=== PATIENT | female | born 1990 | race Caucasian/White ===

== ENCOUNTER 2019-04-15 17:58 | Inpatient (IN) | payer SELFPAY ==
[2019-04-15 18:38] LABS: Absolute Lymphocytes (CBC) 2.1 K/uL (0.7-4.9); Basophils % 0.5 % (0-1.3); Hematocrit 39.1 % (36.0-45.0); Lymphocytes % 28.4 % (15.3-44.8); MPV 8.3 fL (7.6-11.3); RBC Red Blood Cell Count 4.72 M/uL (3.86-4.86)
[2019-04-15] MEDS ORDERED: KETOROLAC 30 MG/ML INJ ONE (18:57)
[2019-04-15] MEDS ORDERED: ONDANSETRON 4 MG/2 ML VIAL ONE (18:58)
[2019-04-15] MEDS ORDERED: NA CHLORIDE 0.9% 1,000 ML ONE (18:58)
[2019-04-15 19:02] LABS: ALT/SGPT 27 U/L (12-78); AST/SGOT 12 U/L (15-37); Albumin 3.7 g/dL (3.4-5.0); Alkaline Phosphatase 74 U/L (45-117); BUN Blood Urea Nitrogen 22 mg/dL (7-18); Bicarbonate 28 mmol/L (21-32); Bilirubin Direct < 0.1 mg/dL (0-0.2); Bilirubin Total 0.3 mg/dL (0.2-1.0); Glucose Level 105 mg/dL (74-106); Lipase 235 U/L (73-393); Potassium 4.2 mmol/L (3.5-5.1); Protein, Total 7.8 g/dL (6.4-8.2); Sodium Level 145 mmol/L (136-145)
--- NOTE | 2019-04-15 19:16 | RAD REPORT ---
EXAM DESCRIPTION: CT - Stone Protocol - 04/15/2019 7:09 pm CLINICAL HISTORY: Flank pain. Left flank pain COMPARISON: No comparisons TECHNIQUE: Axial images were obtained without oral or IV contrast. Lack of contrast limits solid org an and vascular assessment. The [id number] spans the entirety of the system partially obscuring uppermost abdomen and lung bases. Coronal reformatted images were obtained and reviewed. All CT scans are performed using dose optimization technique as appropriate and may include automated exposure control or mA/KV adjustment according to patient size. FINDINGS: The lower lung day are clear. Imaged portions of the liver and spleen show no suspicious findings on non-contrast imaging. The panc reas and adrenal glands are normal. No pathologic lymphadenopathy in the abdomen or pelvis. Moderate left hydronephrosis and hydroureter is present caused by a 5 mm stone (1170 HU) at the left UVJ. Punctate caliceal stones are present bilaterally as well. No bowel obstruction, free air, free fluid or abscess. Normal appendix noted. No significant bony abnormality. IMPRESSION: Moderate left hydronephrosis and hydroureter caused by a 5 mm stone at the left UVJ. Additional punctate bilateral nephrolithiasis.
[2019-04-15] MEDS ORDERED: TRAMADOL HCL 50 MG TAB ONE (19:55)
[2019-04-15 20:13] LABS: Urine Specific Gravity >1.030 (1.005-1.030)
[2019-04-15 20:13] LABS: Urine Blood 2+ (NEG); Urine Glucose NEGATIVE (NEG); Urine Protein NEGATIVE (NEG); Urine Specific Gravity >1.030 (1.005-1.030)
--- NOTE | 2019-04-15 21:40 | ER ---
Nurse's Notes [facility] Name: Shani Whitfield Age: 28 yrs Sex: Female : 1990 Arrival Date: 04/15/2019 Time: 18:00 Bed 30 Private MD: Diagnosis: Unspecified renal colic;5 mm Left UPJ stone with mild hydrourter and hydronephrosis Presentation: 04/15 18:00 Presenting complaint: EMS states: she has left flank pain for 2 weeks now. she stays in [address] and last heroine use was 26 days ago. also reported n/v and diarrhea yesterday. she had 8x lithotripsy in the past. motrin was given \T\ 1230 today. Transition of care: patient was received from another setting of care (rehabilitation facility). Onset of symptoms was April 2019. Risk Assessment: Do you want to hurt yourself or someone else? Patient reports no desire to harm self or others. Initial Sepsis Screen: Does the patient meet any 2 criteria? No. Patient's initial sepsis screen is negative. Does the patient have a suspected source of infection? No. Patient's initial sepsis screen is negative. Care prior to arrival: None. 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 - Social history:: Smoking status: Patient uses tobacco products, smokes one-half pack cigarettes per day, Patient uses street drugs, heroin, last use of heroine was 26 days ago. , Patient/guardian denies using alcohol. - Ebola Screening: : No symptoms or risks identified at this time. Screenin:21 Abuse screen: Denies threats or abuse. Denies injuries from another. Nutritional mg2 screening: No deficits noted. Tuberculosis screening: No symptoms or risk factors identified. Fall Risk IV access (20 points). Assessment: 18:19 General: Appears uncomfortable, Behavior is calm, cooperative. Pain: Complains of pain mg2 in left flank Pain does not radiate. Pain currently is 8 out of 10 on a pain scale. Quality of pain is described as aching, Pain began gradually, Is intermittent. Neuro: Level of Consciousness is awake, alert, obeys commands, Oriented to person, place, time, situation. Cardiovascular: Capillary refill < 3 seconds Patient's skin is warm and dry. Respiratory: Airway is patent Respiratory effort is even, unlabored, Respiratory pattern is regular, symmetrical. GI: Reports diarrhea, nausea, vomiting, since yesterday. : Urine is pls see urine dip. EENT: No signs and/or symptoms were reported regarding the EENT system. Derm: Skin is intact, is healthy with good turgor, Skin is pink, warm \T\ dry. normal. Musculoskeletal: Circulation, motion, and sensation intact. Capillary refill < 3 seconds. 20:08 Reassessment: Patient appears in no apparent distress at this time. No changes from [facility] [place] previously documented assessment. 21:00 Reassessment: Patient appears in no apparent distress at this time. Patient and/or mg2 family updated on plan of care and expected duration. Pain level reassessed. Patient is alert, oriented x 3, equal unlabored respirations, skin warm/dry/pink. 22:13 Reassessment: Patient appears in no apparent distress at this time. KALPESH palomino from [address] contacted informing that patient is being hospitalized. dr horne at bedside examining the patient. Patient denies pain at this time. Patient states feeling better. Patient states symptoms have improved. 23:48 Reassessment: Patient appears in no apparent distress at this time. Patient and/or cc3 family updated on plan of care and expected duration. Pain level reassessed. Patient is alert, oriented x 3, equal unlabored respirations, skin warm/dry/pink. Patient for admission, room available in 406, report called and handed over to KALPESH Conti for continuity of care and management. Patient denies pain at this time. Patient states feeling better. Patient states symptoms have improved. 23:50 Reassessment: Patient left ER for admission vitally stable by wheelchair escorted by ED cc3 britni Cheng. No valuables left in the patient's room. Patient denies pain at this time. Patient states feeling better. Patient states symptoms have improved. Vital Signs: 18:03 BP 132 / 96; Pulse 65; Resp 18; Temp 98.1; Pulse Ox 100% on R/A; Weight 56.25 kg; mg2 Height 5 ft. 1 in. (154.94 cm); Pain 8/10; 19:58 BP 138 / 98; Pulse 65; Resp 18; Pulse Ox 100% on R/A; mg2 21:00 BP 111 / 60; Pulse 90; Resp 18; Pulse Ox 100% on R/A; mg2 22:12 BP 110 / 57; Pulse 92; Resp 18; Pulse Ox 99% on R/A; Pain 0/10; mg2 23:37 BP 112 / 63; Pulse 90; Resp 17 S; Pulse Ox 99% on R/A; Pain 0/10; cc3 18:03 Body Mass Index 23.43 (56.25 kg, 154.94 cm) mg2 ED Course: 18:00 Patient arrived in ED. mg2 18:03 Triage completed. mg2 18:18 Romaine Marquez, RN is Primary Nurse. mg2 18:19 Arm band placed on. mg2 18:22 Patient has correct armband on for positive identification. mg2 18:22 No provider procedures requiring assistance completed. Inserted saline lock: 20 gauge mg2 in right antecubital area, using aseptic technique. Blood collected. 18:43 Jonas Eagle MD is Attending Physician. kdr 19:09 CT Stone Protocol In Process Unspecified. EDMS 21:38 Jabier Horne is Hospitalizing Provider. kdr 23:50 Patient admitted, IV remains in place. cc3 Administered Medications: 19:01 Drug: NS 0.9% 500 ml Route: IV; Rate: bolus; Site: right antecubital; mg2 22:15 Follow up: Response: No adverse reaction; IV Status: Completed infusion mg2 19:02 Drug: TORadol - Ketorolac 15 mg Route: IVP; Site: right antecubital; mg2 20:00 Follow up: Response: No adverse reaction; Pain is unchanged, physician notified mg2 19:02 Drug: Zofran 4 mg Route: IVP; Site: right antecubital; mg2 22:15 Follow up: Response: No adverse reaction; Marked relief of symptoms mg2 20:00 Drug: traMADol 50 mg Route: PO; mg2 22:14 Follow up: Response: No adverse reaction; Marked relief of symptoms mg2 Outcome: 21:39 Decision to Hospitalize by Provider. kdr 23:50 Admitted to Tele accompanied by tech, via wheelchair, room 406, with chart, Report cc3 called to KALPESH Conti 23:50 Condition: stable 23:50 Instructed on the need for admit, Demonstrated understanding of instructions. 23:58 Patient left the ED. cc3 Signatures: Dispatcher [employer] EDMS Jnoas Eagle MD MD kdr Romaine Marquez, KALPESH RN mg2 Carmelina Alvarez cc3
--- NOTE | 2019-04-15 21:41 | EDPHYS ---
Physician Documentation [facility] Name: Shani Whitfield Age: 28 yrs Sex: Female : 1990 Arrival Date: 04/15/2019 Time: 18:00 Bed 30 Private MD: ED Physician Jonas Eagle HPI: 04/15 22:28 This 28 yrs old Female presents to ER via EMS with complaints of left flank kdr pain intermittent for two weeks. 22:28 The patient presents with abdominal pain left flank. Onset: The symptoms/episode kdr began/occurred 2 week(s) ago. The symptoms radiate to the left flank. Associated signs and symptoms: Pertinent positives: nausea and vomiting, Pertinent negatives: anorexia, blood in stools, chest pain, constipation, diarrhea, vomiting blood. The symptoms are described as achy, crampy, dull, vague, waxing/waning. Modifying factors: The symptoms are alleviated by nothing, the symptoms are aggravated by movement. Severity of pain: At its worst the pain was moderate severe incapacitating just prior to arrival, in the emergency department the pain is unchanged. The patient has experienced similar episodes in the past, multiple times. The patient has not recently seen a physician. [employer]: 18:22 lmp-2 months ago mg2 Historical: - Allergies: 18:08 No Known Allergies; mg2 - Home Meds: 18:08 sulfamethoxazole-trimethoprim Oral [Active]; Motrin Oral [Active]; mupirocin [Active]; mg2 Hydroxyzine Oral [Active]; - PMHx: 18:08 kidney stones; mg2 - PSHx: 18:08 Lithotripsy; ; mg2 - Immunization history:: Flu vaccine is not up to date. - Social history:: Smoking status: Patient uses tobacco products, smokes one-half pack cigarettes per day, Patient uses street drugs, heroin, last use of heroine was 26 days ago. , Patient/guardian denies using alcohol. - Ebola Screening: : No symptoms or risks identified at this time. ROS: 22:28 Constitutional: Negative for fever, chills, and weight loss, Eyes: Negative for injury, kdr pain, redness, and discharge, ENT: Negative for injury, pain, and discharge, Neck: Negative for injury, pain, and swelling, Cardiovascular: Negative for chest pain, palpitations, and edema, Respiratory: Negative for shortness of breath, cough, wheezing, and pleuritic chest pain, : Negative for injury, bleeding, discharge, and swelling, MS/Extremity: Negative for injury and deformity, Skin: Negative for injury, rash, and discoloration, Neuro: Negative for headache, weakness, numbness, tingling, and seizure activity. Psych: Negative for depression, anxiety, suicide ideation, homicidal ideation, and hallucinations, Allergy/Immunology: Negative for hives, rash, and allergies, Endocrine: Negative for neck swelling, polydipsia, polyuria, polyphagia, and marked weight changes, Hematologic/Lymphatic: Negative for swollen nodes, abnormal bleeding, and unusual bruising. 22:28 Abdomen/GI: Positive for nausea and vomiting, of the posterior aspect of left lateral abdomen and anterior aspect of left lateral abdomen. Exam: 22:28 Constitutional: This is a well developed, well nourished patient who is awake, alert, kdr and in no acute distress. Head/Face: Normocephalic, atraumatic. Eyes: Pupils equal round and reactive to light, extra-ocular motions intact. Lids and lashes normal. Conjunctiva and sclera are non-icteric and not injected. Cornea within normal limits. Periorbital areas with no swelling, redness, or edema. Neck: Trachea midline, no thyromegaly or masses palpated, and no cervical lymphadenopathy. Supple, full range of motion without nuchal rigidity, or vertebral point tenderness. No Meningismus. Chest/axilla: Normal chest wall appearance and motion. Nontender with no deformity. No lesions are appreciated. Cardiovascular: Regular rate and rhythm with a normal S1 and S2. No gallops, murmurs, or rubs. Normal PMI, no JVD. No pulse deficits. Respiratory: Lungs have equal breath sounds bilaterally, clear to auscultation and percussion. No rales, rhonchi or wheezes noted. No increased work of breathing, no retractions or nasal flaring. Abdomen/GI: Soft, non-tender, with normal bowel sounds. No distension or tympany. No guarding or rebound. No evidence of tenderness throughout. Skin: Warm, dry with normal turgor. Normal color with no rashes, no lesions, and no evidence of cellulitis. MS/ Extremity: Pulses equal, no cyanosis. Neurovascular intact. Full, normal range of motion. Neuro: Awake and alert, GCS 15, oriented to person, place, time, and situation. Cranial nerves II-XII grossly intact. Motor strength 5/5 in all extremities. Sensory grossly intact. Cerebellar exam normal. Normal gait. Psych: Awake, alert, with orientation to person, place and time. Behavior, mood, and affect are within normal limits. 22:28 Back: pain, that is mild, left flank pain. Vital Signs: 18:03 BP 132 / 96; Pulse 65; Resp 18; Temp 98.1; Pulse Ox 100% on R/A; Weight 56.25 kg; mg2 Height 5 ft. 1 in. (154.94 cm); Pain 8/10; 19:58 BP 138 / 98; Pulse 65; Resp 18; Pulse Ox 100% on R/A; mg2 21:00 BP 111 / 60; Pulse 90; Resp 18; Pulse Ox 100% on R/A; mg2 22:12 BP 110 / 57; Pulse 92; Resp 18; Pulse Ox 99% on R/A; Pain 0/10; mg2 23:37 BP 112 / 63; Pulse 90; Resp 17 S; Pulse Ox 99% on R/A; Pain 0/10; cc3 18:03 Body Mass Index 23.43 (56.25 kg, 154.94 cm) mg2 MDM: 21:39 Patient medically screened. kdr 22:28 Data reviewed: vital signs, nurses notes, lab test result(s), radiologic studies. kdr Counseling: I had a detailed discussion with the patient and/or guardian regarding: the historical points, exam findings, and any diagnostic results supporting the discharge/admit diagnosis, lab results, radiology results, the need for further work-up and treatment in the hospital. ED course: The patient's pain was not controlled and she continued to have nausea and pain. Will admit for pain control and urology consult in AM. Dr. Mejia was contacted by Dr. Horne while in the ED. 04/15 18:18 Order name: Basic Metabolic Panel; Complete Time: 19:34 mg2 04/15 18:18 Order name: CBC with Diff; Complete Time: 19:34 mg2 04/15 18:18 Order name: Creatinine for Radiology; Complete Time: 19:34 mg2 04/15 18:18 Order name: Hepatic Function; Complete Time: 19:34 mg2 04/15 18:18 Order name: Lipase; Complete Time: 19:34 mg2 04/15 18:20 Order name: Urine Dipstick--Ancillary (enter results); Complete Time: 20:36 sp 04/15 18:18 Order name: IV Saline Lock; Complete Time: 18:18 mg2 04/15 18:20 Order name: Urine --Ancillary (enter results); Complete Time: 20:36 sp 04/15 18:21 Order name: Urine --Ancillary (enter results); Complete Time: 20:36 sp 04/15 18:54 Order name: CT Stone Protocol; Complete Time: 19:34 kdr 04/15 18:18 Order name: Labs collected and sent; Complete Time: 18:18 mg2 Administered Medications: 19:01 Drug: NS 0.9% 500 ml Route: IV; Rate: bolus; Site: right antecubital; mg2 22:15 Follow up: Response: No adverse reaction; IV Status: Completed infusion mg2 19:02 Drug: TORadol - Ketorolac 15 mg Route: IVP; Site: right antecubital; mg2 20:00 Follow up: Response: No adverse reaction; Pain is unchanged, physician notified mg2 19:02 Drug: Zofran 4 mg Route: IVP; Site: right antecubital; mg2 22:15 Follow up: Response: No adverse reaction; Marked relief of symptoms mg2 20:00 Drug: traMADol 50 mg Route: PO; mg2 22:14 Follow up: Response: No adverse reaction; Marked relief of symptoms mg2 Disposition: 04/15/19 21:39 Hospitalization ordered by Jabier Horne for Observation. Preliminary diagnosis are Unspecified renal colic, 5 mm Left UPJ stone with mild hydrourter and hydronephrosis . - Bed requested for Telemetry/MedSurg (observation). - Status is Observation. cc3 - Condition is Stable. - Problem is an acute exacerbation. - Symptoms have improved. UTI on Admission? No Signatures: Dispatcher [employer] EDMS Diana Montoya RN RN Jonas Eagle MD MD [facility] Romaine Marquez RN RN mg2 Carmelina Alvarez cc3 Corrections: (The following items were deleted from the chart) 21:40 21:39 Hospitalization Ordered by Jabier Horne for Observation. Preliminary diagnosis kdr is Unspecified renal colic. Bed requested for Telemetry/MedSurg (observation). Status is Observation. Condition is Stable. Problem is an acute exacerbation. Symptoms have improved. UTI on Admission? No. kdr 23:36 21:40 04/15/2019 21:39 Hospitalization Ordered by Jabier Horne for Observation. mw Preliminary diagnosis is Unspecified renal colic; 5 mm Left UPJ stone with mild hydrourter and hydronephrosis . Bed requested for Telemetry/MedSurg (observation). Status is Observation. Condition is Stable. Problem is an acute exacerbation. Symptoms have improved. UTI on Admission? No. kdr 23:58 23:36 04/15/2019 21:39 Hospitalization Ordered by Jabier Horne for Observation. cc3 Preliminary diagnosis is Unspecified renal colic; 5 mm Left UPJ stone with mild hydrourter and hydronephrosis . Bed requested for Telemetry/MedSurg (observation). Status is Observation. Condition is Stable. Problem is an acute exacerbation. Symptoms have improved. UTI on Admission? No. mw
--- NOTE | 2019-04-15 23:14 | P.HP ---
Certification for Inpatient Patient admitted to: Inpatient With expected LOS: >2 Midnights Practitioner: I am a practitioner with admitting privileges, knowledge of patient current condition, hospital course, and medical plan of care. Services: Services provided to patient in accordance with Admission requirements found in Title 42 Section 412.3 of the Code of Federal Regulations Patient History Date of Service: 04/16/19 Reason for admission: left flank pain History of Present Illness: 28-year-old woman with a history of kidney stones status post left lithotripsy in the past presented to the emergency department with a complaint of left flank pain which has been present for about 5 days. Her symptoms are associated with suprapubic pain, dysuria and increased urinary frequency. The patient is undergoing rehab for heroine abuse. She reports chills and sweating but no recorded fever. She also reports nausea and vomiting. In the ED, CT abdomen and pelvis report 5 mm stone in the UPJ with hydroureter and hydronephrosis. She has no leukocytosis and her urinalysis is negative for UTI. She was given Toradol and tramadol for pain in the ED which per patient helped. Dr Mejia was informed who is planning ureteral stent placement. Patient is admitted for further management. Allergies No Known Allergies Allergy (Verified 04/16/19 00:13) Home Medications: Ibuprofen/Diphenhydramine HCl [Ibuprofen Pm Softgel] 800 mg PO PRN 04/16/19 - Past Medical/Surgical History -: Nephrolithiasis -: History of heroin abuse -: Lithotripsy - Family History Family History: Reviewed- Non-Contributory - Social History Smoking Status: Current every day smoker Alcohol use: No CD- Drugs: No Review of Systems Other: General: No fever, no malaise, no unintentional weight loss. Eyes: No eye discharge, Respiratory: No cough, no shortness of breath. CVS: No chest pain, no palpitation, no lightheadedness. GI: Patient endorsed nausea and vomiting, no constipation, no diarrhea. Genitourinary: No incontinence, no hematuria. Musculoskeletal: No joint pains, or joint swelling, no gait instability. Neurology: No headache, no asymmetric, weakness, no problem with swallowing. Except as documented, all other systems reviewed and negative. Physical Examination - Physical Exam General: Alert, In no apparent distress, Oriented x3 HEENT: Normocephalic, PERRLA, Mucous membr. moist/pink, Sclerae nonicteric Neck: Supple, JVD not distended, No Thyromegaly Respiratory: Clear to auscultation bilaterally, Normal air movement Cardiovascular: No edema, Normal pulses, Regular rate/rhythm, Normal S1 S2, No murmurs Capillary refill: <2 Seconds Gastrointestinal: Normal bowel sounds, Soft and benign, Non-distended, Other ( Left costovertebral angle tenderness) Musculoskeletal: No swelling, No erythema Integumentary: No rashes Neurological: Normal speech, Normal strength at 5/5 x4 extr, Cranial nerves 3- 12 intact - Studies Laboratory Data (last 24 hrs) 04/15/19 18:15: Creatinine 0.65 04/15/19 18:15: WBC 7.3, Hgb 12.7, Hct 39.1, Plt Count 299 04/15/19 18:15: Sodium 145, Potassium 4.2, BUN 22 H, Creatinine 0.67, Glucose 105, Total Bilirubin 0.3, AST 12 L, ALT 27, Alkaline Phosphatase 74, Lipase 235 Assessment and Plan - Problems (Diagnosis) (1) Nephrolithiasis Current Visit: Yes Status: Acute (2) Hydronephrosis Current Visit: Yes Status: Acute (3) Hydroureter Current Visit: Yes Status: Acute (4) History of heroin abuse Current Visit: Yes Status: Acute - Plan Admit patient to the medical floor Start empiric IV Rocephin Oral tramadol p.r.n. for pain. Limiting IV opiates given that the patient is undergoing rehab for heroine abuse. IV Toradol p.r.n. for pain during post-op period. Monitor renal function Obtain KUB NPO after midnight. Consult to Urology-Dr. Mejia informed. - Advance Directives Does patient have a Living Will: No Does patient have a Durable POA for Healthcare: No
[2019-04-16] MEDS ORDERED: ACETAMINOPHEN 500 MG TAB PO PRN (00:07)
[2019-04-16] MEDS ORDERED: ONDANSETRON 4 MG/2 ML VIAL IV PRN (00:07)
[2019-04-16] MEDS ORDERED: TRAMADOL HCL 50 MG TAB PO PRN (00:07)
[2019-04-16] MEDS: NA CHLORIDE 0.9% 1,000 ML IV SCH ×2 (00:44→11:17)
[2019-04-16 02:09] VITALS: BMI 24.2
[2019-04-16 05:36] LABS: Absolute Lymphocytes (CBC) 2.1 K/uL (0.7-4.9); Basophils % 0.4 % (0-1.3); Hematocrit 33.8 % (36.0-45.0); MPV 8.4 fL (7.6-11.3); RBC Red Blood Cell Count 4.13 M/uL (3.86-4.86)
[2019-04-16 06:00] LABS: ALT/SGPT 24 U/L (12-78); AST/SGOT 14 U/L (15-37); Albumin 2.9 g/dL (3.4-5.0); Alkaline Phosphatase 65 U/L (45-117); BUN Blood Urea Nitrogen 21 mg/dL (7-18); Bicarbonate 23 mmol/L (21-32); Bilirubin Total 0.3 mg/dL (0.2-1.0); Glucose Level 82 mg/dL (74-106); Potassium 4.1 mmol/L (3.5-5.1); Protein, Total 6.3 g/dL (6.4-8.2); Sodium Level 145 mmol/L (136-145)
[2019-04-16] MEDS ORDERED: INFLUENZA VACCINE (for 3y+) 0.5 ML DOSE IMVAC ONE (08:00)
[2019-04-16] MEDS ORDERED: CEFTRIAXONE 1 GM/NS 50 ML 1 GM/50 ML BAG IV SCH (09:00)
[2019-04-16] MEDS ORDERED: CEFTRIAXONE/SWI 1gm 1 GM/10 ML SYR IV SCH (09:00)
--- NOTE | 2019-04-16 09:45 | RAD REPORT ---
EXAM DESCRIPTION: RAD - Abdomen 1 View (KUB) - 04/16/2019 9:03 am CLINICAL HISTORY: Nephrolithiasis Abdominal pain COMPARISON: Stone Protocol dated 04/15/2019 FINDINGS: A 2- 3 millimeter calcification is seen overlying the hilum of the right kidney. Right kid salazar is mostly obscured by bowel content. No left-sided calculi seen. The nephrocalcinosis pattern see n on the CT study is not evident on plain film. No ureteral calculus suspected. Patient has numerous clustered phleboliths in the left side of the pe lvis. No dilated bowel loops. No obstruction, free air or pneumatosis. No significant bony findings IMPRESSION: Small 2- 3 mm calcification in the right renal hilum. Nephrolithiasis pattern seen on CT imaging does not have a plain film correlate.
[2019-04-16] MEDS ORDERED: PROPOFOL 200 MG/20 ML VIAL IV ONE (12:27)
[2019-04-16] MEDS ORDERED: LIDOCAINE 1% MPF 5 ML VIAL ONE (12:27)
[2019-04-16] MEDS ORDERED: FENTANYL CITR 100 MCG/2 ML ONE (12:27)
[2019-04-16] MEDS ORDERED: MIDAZOLAM HCL 2 MG/2 ML INJ ONE (12:27)
[2019-04-16] MEDS ORDERED: LIDOCAINE 2% MPF 5 ML VIAL ONE (12:31)
[2019-04-16] MEDS ORDERED: KETOROLAC 30 MG/ML INJ ONE (13:11)
[2019-04-16] MEDS ORDERED: KETAMINE HCL 500 MG/5 ML VIAL ONE (13:11)
[2019-04-16] MEDS ORDERED: ESMOLOL HCL 10 ML IV ONE (13:12)
[2019-04-16] MEDS ORDERED: Phenylephrine HCl 10 MG/ML 1 ML VIAL ONE (13:41)
[2019-04-16] MEDS ORDERED: NS 0.9% VIAL 10 ML ONE (13:41)
[2019-04-16] MEDS ORDERED: dexAMETHasone 10 MG/ML VIAL ONE (13:44)
[2019-04-16] MEDS ORDERED: ONDANSETRON 4 MG/2 ML VIAL ONE (13:45)
[2019-04-16] MEDS ORDERED: Ringers Lactate 1,000 ML IV ONE (13:58)
[2019-04-16 14:03] VITALS: O2SAT 100
[2019-04-16] MEDS ORDERED: PROMETHAZINE 25 MG/ML VIAL ONE (14:23)
--- NOTE | 2019-04-16 14:43 | RAD REPORT ---
EXAM DESCRIPTION: RAD - Urethrocystogrphy Retrograde - 04/16/2019 2:29 pm FINDINGS: There were 5 fluoroscopic KUB images obtained during fluoroscopic assisted stone retrieval . No suspicious or unexpected findings. Fluoro time was 27 seconds.
[2019-04-16] MEDS ORDERED: BUTORPHANOL 1 MG/ML INJ IV ONE (15:00)
--- NOTE | 2019-04-16 15:21 | CON ---
History Of Present Illness: A 28-year-old female with history of 2 weeks left flank pain, came into the ER. CT scan showed moderate left hydronephrosis and hydroureter caused by a 5 mm stone Hounsfiel d units 1170, left UVJ. She also has punctate kidney stones present bilaterally. She needs a cystos copy and ureteroscopy stone extraction, stent placement. All the general information, alternatives, and risks were reviewed and she wishes to proceed. Past Medical History: Last menstrual period 2 months ago. Allergies: NO KNOWN DRUG ALLERGIES. Home Medications: Sulfamethoxazole, Motrin,[QAMARKER] , hydralazine. Past Medical History: Kidney stones. Past Surgical History: Lithotripsy, . Immunizations: Up to date. Flu Vaccine: Up to date. Review of Systems: Otherwise negative. Social History: She is a smoker. Physical Examination: Vital Signs: Afebrile, stable. HEENT: Atraumatic, normocephalic. Neck: Supple. Respiratory: Clear. Cardiovascular: S1, S2. Gastrointestinal: Soft. Laboratory Data: Reveals white count 7.3, H and H 12.7 and 39.1, platelet count 299. Electrolyte sh ows creatinine 0.67, sodium 145, potassium 4.2, BUN 22, glucose 105. test is pending. Assessment: A 5 mm left UVJ stone causing pain, hydronephrosis. Plan: Cystoscopy, ureteroscopy, stone extraction, stone basket and stent placement. All the general information was reviewed and patient wishes to proceed. FLACA/SKINNY Voice ID: [id number] Report ID: [id number]
[2019-04-16 16:21] VITALS: BP 125/57; TEMP 97.4
--- NOTE | 2019-04-16 16:36 | PN ---
Date of Progress Note: 04/16/2019 Subjective: Patient seen and examined. Chart reviewed and case discussed with RN and Dr. Mejia. Yaw snyder states her pain is somewhat improved. Medication List: Reviewed. Physical Examination: Vital Signs: Temperature 97.2, heart rate 74, blood pressure 108/68, respirations 18, O2 of 100% on room air. General: Awake, alert, oriented x3, ill-appearing female. CV: S1 and S2. Regular rate and rhythm. Peripheral pulses present. Respiratory: Moving air well bilaterally. No wheezing or stridor. No use of accessory muscles. Gastrointestinal: Abdomen is soft, nontender, nondistended. Positive bowel sounds. Patient has lef t flank tenderness. Extremities: No clubbing, cyanosis, or edema. Neurologic: Nonfocal. Laboratory Data: Sodium 145, potassium 4.1, chloride 117, CO2 of 23, BUN 21, creatinine 0.5, glucose 82, calcium 8.7, AST 14, ALT 24, albumin 2.9. WBC 7.1, H and H of 11.1 and 33.8, platelets 256. [facility] B personally reviewed, shows small 2 to 3 mm calcification in the right renal hilum. Nephrolithiasis pattern seen on CT imaging. Does not have a plain film to correlate. Assessment And Plan: 28-year-old female with: 1.Acute nephrolithiasis, 5 mm stone in the left UVJ. KUB also shows a smaller stone in the right re nal hilum. Dr. Mejia has been consulted. Plan is for stent placement. 2.Left hydronephrosis secondary to above. Patient has good urinary output. We will continue IV flu ids. 3.Hydroureter secondary to above. 4.History of heroin abuse, currently undergoing rehab. We will avoid IV opiates. 5.Deep venous thrombosis prophylaxis. SCDs. SA/MODL Voice ID: [id number] Report ID: [id number]
--- NOTE | 2019-04-17 03:34 | DS ---
Date of Discharge: 04/16/2019 Consultants: Dr. Mejia with Urology. Procedures: Cystoscopy, left rigid ureteroscopy. Discharge Diagnoses: 1.Nephrolithiasis, left ureterovesical junction. 2.Hydronephrosis. 3.Hydroureter. 4.History of heroin abuse. Hospital Course: Patient is a 28-year-old female with kidney stones status post left lithotripsy in the past, comes in with left flank pain for 5 days. She had some pain, dysuria, urinary frequency, c urrently undergoing rehab for heroin abuse. CT scan showed a 5 mm stone in the UPJ with hydroureter and hydronephrosis. She did not have any leukocytosis in her UTI. Her UA was negative for UTI. Pat ient was given pain medications, started on IV fluids and IV antibiotics empirically and Dr. Mejia wa s consulted. She was taken for cystoscopy. As mentioned above, patient apparently had passed her st one. KUB showed 2-3 mm calcification in the right renal hilum. The nephrolithiasis pattern was not correlated on the plain film. Patient's pain resolved. She was then cleared for discharge. No furt her need for IV antibiotics or pain medications. Condition On Discharge: Stable. Activity: As tolerated. Medications: As per medication reconciliation list. Followup: With urologist, Dr. Mejia, in 2 weeks. Return to ER for worsening condition. Diet: Regular. Activity: As tolerated. For physical exam findings, please see progress note dictated on day of discharge. /SKINNY Voice ID: [id number] Report ID: [id number]
== END 2019-04-16 18:12 | disposition home or self-care (01) | DRG 694 ==
LOC: ER 17:58 → ERHOLD 23:20 → 4TH 23:48
PROVIDERS: ADMIT Internal Medicine; ATTEND Internal Medicine
PROC: 0TJ98ZZ Inspection of Ureter, Via Natural or Artificial Opening Endoscopic (ICD-10-PCS; 2019-04-16)
PROC: BT1FZZZ Fluoroscopy of Left Kidney, Ureter and Bladder (ICD-10-PCS; principal; 2019-04-16 13:00)
DX: N13.2 Hydronephrosis with renal and ureteral calculous obstruction (principal); N13.4 Hydroureter; F11.11 Opioid abuse, in remission; F17.210 Nicotine dependence, cigarettes, uncomplicated
CPT/HCPCS: 36415; 51610; 74018; 74176; 74450; 76377; 80048; 80053; 80076; 81003; 81025; 83690; 85025; 90471; 94760; 96361; 96374; 96375; 99285; J0595; J0696; J1100; J2250; J2370; J2405; J2550; J2704; J3010; J7030; J7120; Q2035